=== PATIENT | female | born 1970 ===

== ENCOUNTER 2020-03-09 23:04 | Emergency (ER) | payer OTHER ==
--- NOTE | 2020-03-09 23:12 | NUR ---
WHEN PT ENTERED TRIAGE, PT STATES "IM LOOKING FOR [employer]. I'M LOST AND TRYING TO GET THERE." INFORMED PT THAT [employer] WAS JUST DOWN THE STREET AND PT STATES "MY MOM SAID SHE WAS GOING TO PICK ME UP THERE." THIS RN ASKED IF PT WAS HAVING SEIZURES OR NEEDED TO SEE A PHYSICIAN, PT RESPONDED "NO." PT THEN WALKED OUT OF TRIAGE AND LEFT LOBBY.
== END 2020-03-09 23:16 | disposition left against medical advice (07) ==
LOC: ER 23:05
DX: R56.9 Unspecified convulsions (principal); Z53.21 Procedure and treatment not carried out due to patient leaving prior to being seen by health care provider